=== PATIENT | male | born 1965 | race Asian ===

== ENCOUNTER 2022-03-24 07:27 | Day surgery (SDC) | payer OTHER ==
[~2022-03-24] VITALS: Ht 167.6 cm; Wt 89.4 kg
[2022-03-24] MEDS ORDERED: LIDOCAINE 2%, 20 ML MDV ONE (07:40)
[2022-03-24] MEDS ORDERED: PROPOFOL 200MG/ 20ML VIAL (DIPRIVAN) IV ONE (07:40)
[2022-03-24 09:25] VITALS: BP_SYST 124
== END 2022-03-24 09:40 | disposition home or self-care (01) ==
LOC: SDS 07:27 → SMU 07:32 → EDSEX 09:30 → SDS 09:40
PROVIDERS: ATTEND Internal Medicine Gastroenterology
DX: K21.9 Gastro-esophageal reflux disease without esophagitis (principal); K29.50 Unspecified chronic gastritis without bleeding; K26.9 Duodenal ulcer, unspecified as acute or chronic, without hemorrhage or perforation; K29.80 Duodenitis without bleeding; F41.9 Anxiety disorder, unspecified; J45.909 Unspecified asthma, uncomplicated; I10 Essential (primary) hypertension; G47.30 Sleep apnea, unspecified; Z20.822 Contact with and (suspected) exposure to COVID-19; Z79.899 Other long term (current) drug therapy
CPT/HCPCS: 36415 ×2; 43239; 87081; 88305; 88312; 88313; U0003; J2001; J2704